=== PATIENT | male | born 1930 | race Caucasian/White ===

== ENCOUNTER → 2016-07-22 | Day surgery (SDC) | payer OTHER, MEDICARE ==
[2016-07-18 13:02] VITALS: Ht 170.2 cm; Wt 67.3 kg
[~2016-07-22] VITALS: Ht 170.2 cm; Wt 67.3 kg
[~2016-07-22] MED LIST: ASPCH81X PO; FINA5TAB PO; LIDOCAINE HCL 2% 2 ML VIAL (20MG/ML) ONE; PROPOFOL IV EMULSION 10 MG/ML 20 ML VIAL IV ONE; SODIUM CHLORIDE 0.9% 500ML 500 ML IV ONE
--- NOTE | 2016-07-22 11:37 | Endo History and Physical ---
History & Physical Date of Service: July 22, 2016. Chief Complaint: constipation,history of polyps Referring Physician: Dr. Mauro Garza History of Present Illness 85 yo CM who presents for colonoscopy secondary to change in bowel habits with constipation. Past Surgical History Hx Cardiac Surgery: No Hx Internal Defibrillator: No Hx Pacemaker: No Hx Abdominal Surgery: Yes (DAVINA, INGUINAL HERNIA REPAIR X 3, ABDOMINAL MASS REMOVAL) Hx of Implantable Prosthesis: No Hx Post-Op Nausea and Vomiting: No Hx Cancer Surgery: No Hx Thoracic Surgery: No Hx Orthopedic: No Hx Urinary Tract Surgery: Yes (LITHOTRIPSY AND KIDNEY STONE REMOVAL, TURP) Family History IBD Social History Smoking Status: Former Smoker Hx Substance Use: No Hx Alcohol Use: Yes (2 DRINKS DAILY (BEER AND WINE)) Allergies Coded Allergies: No Known Allergies (Verified , NONE, 07/22/16) Current Medications Reported Home Medications Medications Dose Route/Sig Max Daily Dose Days Date Category Aspirin Chewable (Aspirin) 81 Mg Chew 81 Mg PO HS 01/17/16 Reported Proscar (Finasteride) 5 Mg Tab 5 Mg PO QAM 09/07/08 Reported Vital Signs Weight (Kilograms): 67.27 Height (Feet): 5 Height (Inches): 7 Date Time Temp Pulse Resp B/P Pulse Ox O2 Delivery O2 Flow Rate FiO2 07/22/16 11:19 36.8 85 20 147/77 96 Room Air Physical Exam General Appearance: WD/WN, no apparent distress Respiratory/Chest: Auscultation: breath sounds normal Cardiovascular: Heart Auscultation: RRR Abdomen: Bowel Sounds: normal Inspection & Palpation: soft, non-distended, no tenderness, guarding & rebound Assessment and Plan Assessment: 85 yo CM who presents for colonoscopy secondary to change in bowel habits with constipation. Plan: Proceed with colonoscopy.
--- NOTE | 2016-07-22 12:21 | Discharge Instructions ---
Endoscopy Patient Instructions Date / Procedure(s) Performed July 22, 2016. Colonoscopy Allergy Information Coded Allergies: No Known Allergies (Verified , NONE, 07/22/16) Discharge Date / Findings July 22, 2016. Colon polyps Internal hemorrhoids Medication Instructions Stopped Medication(s): took ASA last night OK to resume all medications today as prescribed Reported Home Medications Medications Dose Route/Sig Max Daily Dose Days Date Category Aspirin Chewable (Aspirin) 81 Mg Chew 81 Mg PO HS 01/17/16 Reported Proscar (Finasteride) 5 Mg Tab 5 Mg PO QAM 09/07/08 Reported Provider Instructions Activity Restrictions - No exercising or heavy lifting for 24 hours. - Do not drink alcohol the day of the procedure. - Do not drive a car or operate machinery until the day after the procedure. - Do not make any important decisions or sign important papers in 24 hours after the procedure. Following Day: - Return to full activity which may include returning to work/school. Diet Start your diet with liquids and light foods (jello, soup, juice, toast). Then eat your usual diet if not nauseated. Treatment For Common After Affects For mild abdominal pain, bloating, or excessive gas: - Rest - Eat lightly - Lie on right side Follow-Up Information Follow-up with Dr. Mauro Garza as scheduled Anesthesia Information What You Should Know You have had a procedure that required some medicine to reduce anxiety and discomfort. This treatment is called moderate sedation. After receiving the treatment, you may be sleepy, but you will be able to breathe on your own. The effects of the treatment may last for several hours. Follow these instructions along with Activity/Diet recommendations noted above: * Do NOT do anything where dizziness or clumsiness would be dangerous. * Rest quietly at home today, then you can be up and about tomorrow. * Have a responsible person stay with you the rest of today. * You may have had an I.V. today. If so, you may take the dressing off later today. Recommendations Call your doctor if: * Trouble breathing * Continuous vomiting for more than 24 hours * Temperature above 101 degrees * Severe abdominal pain or bloating * Pain not relieved by pain medicine ordered * There is increased drainage or redness from any incision * A large amount of rectal bleeding greater than 2-3 tablespoons. (If you had a polyp/s removed or have hemorrhoids, a small amount of blood - from the rectum is to be expected.) * You have any unanswered questions or concerns. IN THE EVENT OF A SERIOUS EMERGENCY, GO TO THE NEAREST EMERGENCY ROOM Your discharge instructions were prepared by provider Raj Driver. Patient Instructions Signature Page Augustin Umaña Patient (or Guardian) Signature/Date: I have read and understand the instructions given to me by my caregivers. Caregiver/RN/Doctor Signature/Date: The above-named patient and/or guardian has received patient instructions on this date. + Original Patient Signature Page (only) stays with chart. Please make copy for patient.
--- NOTE | 2016-07-22 12:25 | GI REPORT ---
Procedure Date: 07/22/2016 11:41 AM Procedure: Colonoscopy Indications: Change in bowel habits, Incidental constipation noted Medicines: Monitored Anesthesia Care Complications: No immediate complications. Estimated Blood Loss: Estimated blood loss: none. Procedure: Pre-Anesthesia Assessment: - Prior to the procedure, a History and Physical was performed, and patient medications and allergies were reviewed. The patient's tolerance of previous anesthesia was also reviewed. The risks and benefits of the procedure and the sedation options and risks were discussed with the patient. All questions were answered, and informed consent was obtained. Prior Anticoagulants: The patient has taken aspirin, last dose was 1 day prior to procedure. ASA Grade Assessment: III - A patient with severe systemic disease. After reviewing the risks and benefits, the patient was deemed in satisfactory condition to undergo the procedure. After I obtained informed consent, the scope was passed under direct vision. Throughout the procedure, the patient's blood pressure, pulse, and oxygen saturations were monitored continuously. The Scope was introduced through the anus and advanced to the terminal ileum. The colonoscopy was performed without difficulty. The patient tolerated the procedure well. The quality of the bowel preparation was good. The terminal ileum, ileocecal valve, appendiceal orifice, and rectum were photographed. Findings: Two sessile polyps were found in the descending colon and in the transverse colon. The polyps were 5 to 6 mm in size. These polyps were removed with a hot snare. Resection and retrieval were complete. Non-bleeding internal hemorrhoids were found during retroflexion. The hemorrhoids were small. Impression: - Two 5 to 6 mm polyps in the descending colon and in the transverse colon, removed with a hot snare. Resected and retrieved. - Non-bleeding internal hemorrhoids. Recommendation: - Resume previous diet. - Continue present medications. - Repeat colonoscopy for surveillance based on pathology results. - Return to primary care physician as previously scheduled. Raj rDiver DO 07/22/2016 12:24:30 PM This report has been signed electronically. Note Initiated On: 07/22/2016 11:41 AM I attest to the content of the Intraoperative Record and orders documented therein, exceptions below
[2016-07-22 13:04] VITALS: BP 134/76; PULSE 76; O2SAT 97
--- NOTE | 2016-07-22 13:08 | Anesthesiology Progress Note ---
Anesthesia Post Op Note Date & Time July 22, 2016 at 13:08 Vital Signs Pain Intensity: 0 Vital Signs Past 12 Hours Date Time Temp Pulse Resp B/P Pulse Ox O2 Delivery O2 Flow Rate FiO2 07/22/16 13:04 76 20 134/76 97 Room Air 07/22/16 12:54 74 16 131/76 95 Room Air 07/22/16 12:36 72 16 110/65 98 Room Air 07/22/16 12:21 68 16 129/68 97 Room Air 07/22/16 11:19 36.8 85 20 147/77 96 Room Air Notes Mental Status: alert / awake / arousable, participated in evaluation Pt Amnestic to Procedure: Yes Nausea / Vomiting: adequately controlled Pain: adequately controlled Airway Patency, RR, SpO2: stable & adequate BP & HR: stable & adequate Hydration State: stable & adequate Anesthetic Complications: no major complications apparent
== END | disposition home or self-care (01) ==
LOC: C.GI 10:24
PROVIDERS: ATTEND Internal Medicine
DX: D12.4 Benign neoplasm of descending colon (principal); D12.3 Benign neoplasm of transverse colon; K64.8 Other hemorrhoids; R19.4 Change in bowel habit; Z87.891 Personal history of nicotine dependence; Z83.79 Family history of other diseases of the digestive system; Z79.899 Other long term (current) drug therapy; Z79.82 Long term (current) use of aspirin

== ENCOUNTER → 2017-02-14 | Outpatient (CLI) | payer OTHER, MEDICARE ==
[~2017-02-14] MED LIST changes: -LIDOCAINE HCL 2% 2 ML VIAL (20MG/ML) ONE; +OPTIRAY 320 IV PRN; -PROPOFOL IV EMULSION 10 MG/ML 20 ML VIAL IV ONE; -SODIUM CHLORIDE 0.9% 500ML 500 ML IV ONE
--- NOTE | 2017-02-14 11:03 | DIAGNOSTIC IMAGING REPORT ---
ABDOMEN AND PELVIS CT WITH IV AND ORAL CONTRAST CT DOSE: 314.75 mGy.cm HISTORY: Acute constipation with abdominal fullness. History of lymphoma HX NON HODGKINS LYMPHOMA TECHNIQUE: Multiaxial CT images of the abdomen and pelvis were performed following the use of intravenous and oral contrast. A dose lowering technique was utilized adhering to the principles of ALARA. COMPARISON STUDY: PET CT 12/01/2014, CT abdomen and pelvis 11/28/2011. FINDINGS: Lung bases demonstrate minimal subsegmental bibasilar atelectasis. No pneumoperitoneum or pneumatosis. Imaged inferior cardiac chambers are mildly enlarged. Coronary arterial calcifications noted. Prior cholecystectomy. The spleen and adrenal glands are within normal limits. At least moderate diffuse pancreatic atrophy. There is a low attenuating 2.1 x 2.7 x 3.0 cm ovoid lesion inferior to the pancreatic body nicely seen on image 126 of series 3. This has decreased in size from PET/CT 12/01/2014 where it previously measured 3.0 x 2.7 cm. Again, this is indeterminate however suggests benign etiology. Low attenuating 7 mm lesion of the superior pole right kidney is too small to characterize. Area of increased attenuation was noted within this distribution on CT dated 11/28/2011 suggesting complex renal cyst. No renal calculi or hydronephrosis identified. Mild bilateral renal parenchyma thinning is noted. Ureters and urinary bladder are unremarkable. Heterogeneous appearance of the prostate is noted which contains coarse central calcifications. Atherosclerosis of the aorta without aneurysm. There is no bowel obstruction or focal bowel wall thickening. No bulky adenopathy identified. Soft tissues are unremarkable. The bones appear mildly demineralized. No suspicious lytic or blastic bony lesions. Multilevel degenerative changes of the spine are noted. IMPRESSION: 1. No acute intra-abdominal or intrapelvic abnormality identified. 2. No bulky adenopathy. 3. Additional findings as above. Electronically signed by: Myron Barber M.D. 02/14/2017 11:02 AM Dictated Date/Time: 02/14/2017 10:53 AM
== END | disposition home or self-care (01) ==
LOC: C.CTS 10:25
PROVIDERS: ATTEND Family Medicine
DX: Z85.72 Personal history of non-Hodgkin lymphomas (principal); N44.2 Benign cyst of testis

== ENCOUNTER 2019-02-21 09:22 | Observation (INO) ==
[2019-02-21] MEDS ORDERED: NiCARDipine HCL INJ 2.5 MG/ML 10 ML AMP ONE (10:57)
[2019-02-21] MEDS ORDERED: fentaNYL citrate 100 MCG/2 ML VIAL ONE ×3 (10:57→13:36)
[2019-02-21] MEDS ORDERED: HEPARIN (PORCINE) 1000 UNIT/ML 10 ML (CATH LAB USE ONLY) ONE ×2 (10:57→13:14)
[2019-02-21] MEDS ORDERED: MIDAZOLAM HCL 1 MG/ML 2ML VIAL ONE ×4 (10:57→13:36)
[2019-02-21] MEDS ORDERED: NITROGLYCERIN/D5W 100MCG/ML 20ML SYR ONE (10:58)
--- NOTE | 2019-02-21 11:15 | History & Physical Bridge Note ---
Date of Service February 21, 2019 History & Physical Bridge Note I have examined the patient, reviewed the History & Physical and in the interval since the performance of the History & Physical I have noted the following changes of clinical significance: no changes noted
--- NOTE | 2019-02-21 11:16 | Pre Anesthesia Assessment ---
Date of Service February 21, 2019 Pre Sedation Assessment Vital Signs Temp Pulse Resp BP Pulse Ox 02/21/19 09:42 97.7 F 63 17 161/85 H 97 Cardiovascular RRR, no murmur, no edema Respiratory normal respiratory effort, lungs clear to auscultation Pre-Sedation Airway Assessment Smoking Status: Former smoker Short, Thick Neck: No Thyromental Distance: > or= 3.5 Finger Breadths Oral Cavity: + Chipped Teeth Mallampati Class: III ASA: ASA3 NPO Status Date of Last Intake of Fluids: 02/20/19 Time of Last Intake of Fluids: 21:30 Date of Last Intake of Solid Food: 02/20/19 Time of Last Intake of Solid Foods: 21:30 Procedure Planning Contraindications for Sedation: none Current Medications Reviewed: Yes Notes The planned sedation has been discussed with the patient. Informed Consent was obtained. I have identified the patient, determined the appropriateness of sedation and have assessed the patient immediately prior to the procedure. All medicine(s) and interventions are by my order.
[2019-02-21] MEDS ORDERED: ADENOSINE IV SOLN 3 MG/ML 20 ML VIAL IV ONE (11:58)
[2019-02-21] MEDS ORDERED: CLOPIDOGREL BISULFATE 300 MG TAB ONE (13:48)
[2019-02-21] MEDS ORDERED: NITROGLYCERIN SL 0.4 MG/TAB TAB SL PRN (14:24)
[2019-02-21] MEDS ORDERED: SODIUM CHLORIDE 0.9% 1000ML 1,000 ML IV SCH (14:30)
[2019-02-21] MEDS ORDERED: ENOXAPARIN INJ 40 MG/0.4 ML SYR SQ ONE (15:00)
[2019-02-21] MEDS: AMLODIPINE BESYLATE 5 MG TAB PO SCH (15:28)
[2019-02-21] MEDS ORDERED: SODIUM CHLORIDE 0.9% 500 ML IV SCH (15:30)
[2019-02-21 15:42] LABS: Creatinine Clr Calc Pharmacy 57.7 ml/min; Est GFR (African American) 91.3; Est GFR (Non-African American) 78.8
--- NOTE | 2019-02-21 16:52 | Post Anesthesia Assessment ---
Date of Service February 21, 2019 Post Sedation Assessment Vital Signs Temp Pulse Resp BP Pulse Ox 02/21/19 16:06 60 16 181/79 H 97 02/21/19 15:41 56 L 16 185/82 H 97 02/21/19 15:23 57 L 16 175/79 H 96 02/21/19 14:51 97.3 F L 56 L 18 171/79 H 96 02/21/19 14:35 97.5 F L 62 18 167/82 H 02/21/19 14:15 59 L 18 162/84 H 98 02/21/19 14:00 60 18 176/88 H 95 02/21/19 09:42 97.7 F 63 17 161/85 H 97 Recovery Score Activity: Moves 4 extremities Respiration: Deep Breath/Cough Circulation: +/-20% PreAnes Value Consciousness: Fully Awake Oxygen Saturation: O2 needed for >90% Discharge Sedation Level of Care: Fast Track Phase II Post Sedation Plan On clinical assessment, the patient appears to have tolerated the sedation without complications. Patient is recovering as anticipated. Patient will continue to be monitored by nursing and may be discharged when sedation discharge criteria are met per below protocol. Upon Completions of procedure up to 15 minutes continue every 5 minute vital signs and the P.A.R. score; then discharge to a Phase I or Fast Track to Phase II per the following guidelines: * Discharge Patient to appropriate Phase II area if PAR is 8 or greater or return to pre- procedure baseline. The post - procedure orders will be as directed. * If PAR score is less than 8 or not return to pre-procedure baseline then patient will follow Phase I monitoring till PAR is reached for Phase II. The Phase I may be done in procedure room or may call to secure a Phase I area. * If naloxone or flumazenil are used for reversal, hold in Phase I for continued monitoring from when last reversal dose was given for a minimum of 60 minutes or longer pending the nurse and/or physician discretion of patient condition before discharge to Phase II. Please call the Sedation Physician to re-evaluate and complete post-note for discharge to Phase II area. Do NOT discharge from procedure sedation or Phase 1 until post- sedation evaluation note is complete by procedure /sedation MD Sedation Discharge Instructions to be given to the patient at discharge to home.
[2019-02-21] MEDS ORDERED: ACETAMINOPHEN 325 MG TAB PO PRN (17:06)
--- NOTE | 2019-02-21 17:19 | Cardiac Catheterization ---
[facility] Data: Brewery Technician Cardiac Status Clinical evaluation leading to the procedure CAD Presenation: Unstable angina Anginal Classification: CCS IV Heart Failure: No Cardiogenic Shock within 24 Hours: No Cardiac Arrest within 24 Hours: No Imaging Studies Past 6 Months: Yes Stress Studies Past 6 Months: No Diagnostic Physicians Name: Warner Sahni MD Status: Elective Closure Device Percutaneous Entry Location: Radial Closure Device: Radial Band Recommendations: PCI without planned CABG PCI Indication: + Stress Test and Angina despite med therapy Lesion Segment Name: 1st diagonal Culprit Artery: Yes Stenosis Prior to Rx (%): 90 Chronic Total Occlusion: No IVUS: No FFR: No Pre-Procedure LÁZARO Flow: 3 Previously Treated Lesion: No Lesion Complexity: High/C Lesion Length (mm): 25 Thrombus Present: No Bifurcation Lesion: Yes Guidewire Across Lesion: Stenosis Post-Procedure (%): 0 Post-Procedure LÁZARO Flow: 3 Devices(s) Deployed: Yes Yes Lesion #2 Segment Name: ostial to mid LAD Culprit Artery: No Stenosis Prior to Rx (%): 60-70 Chronic Total Occlusion: No IVUS: Yes FFR: No Pre-Procedure LÁZARO Flow: 3 Previously Treated Lesion: No Lesion Complexity: High/C Lesion Length (mm): 30 Thrombus Present: No Bifurcation Lesion: Yes Guidewire Across Lesion: Yes Stenosis Post-Procedure (%): 0 Post-Procedure LÁZARO Flow: 3 Devices(s) Deployed: Yes Intraprocedure Events Significant Disection: No Perforation: No Cardiac Cath Procedure Full Procedure Date February 21, 2019 Pre-Procedure Diagnosis Pre-Procedure Diagnosis: Angina and Positive Stress Test AUC Score AUC Score: 7 Post-Procedure Diagnosis Post-Procedure Diagnosis: Severe CAD, Successful PCI and Normal Intracardiac Pressures Procedure(s) Performed Procedure(s) Performed: Coronary Angiography, Left Heart Cath, Drug Eluting Stent, IVUS and Fractional Flow [place] Hydraulic Controls Technician Warner Sahni MD E Commerce Marketing Manager(s) Heath Estimated Blood Loss Estimated Blood Loss: 15 Medication(s) Medication(s): Clopidogrel, Fentanyl, Heparin, Lidocaine 1%, Nicardipine, Nitroglycerin and Versed Summary of Findings Indication: Accelerating angina, prior abnormal stress test Access: 6 Fr slender right radial artery Catheters: Luna, JR4 guide, EBU 3.5 guide Findings: LM -moderate caliber, calcified, 20% distal stenosis LAD -40 to 50% ostial stenosis, 50 to 60% proximal to mid disease extending across bifurcation of first septal, large first diagonal. First diagonal with 90% ostial stenosis and 50% mid stenosis. Circumflex -moderate caliber, 30% ostial, mild disease in mid segment extending into large OM 2. Ramus -small caliber with 80% ostial/proximal stenosis RCA -dominant, large caliber vessel, mild diffuse mid segment disease, 50 to 60% distal stenosis. PDA with luminal irregularities LVEDP -10 FFR of RCA RCA cannulated with JR4 guide BMW wire placed into right PDA ACIST FFR catheter placed across distal RCA lesion Pd/Pa 0.98 FFR 0.92 Post procedure no coronary complications -- PCI of LAD/diagonal-- Antithrombotic therapy: Heparin, clopidogrel Procedure: Left main cannulated with EBU 3.5 guide Tactical Intelligence Officer 50 wire passed across lesion into distal first diagonal Pro-water wire passed across lesion and placed in the distal LAD Proximal to mid LAD lesion predilated with 2.5 compliant balloon Ostial to mid first diagonal dilated with 2.5 balloon Dilated diagonal lesion stented with 2.5 x 26 mm [place] drug-eluting stent Stent post-dilated with 2.5 noncompliant balloon Proximal to mid LAD again dilated with 2.5 compliant balloon Proximal to mid LAD stented with 2.75 x 22 mm Mahamed drug-eluting stent Diagonal rewired with remote pilot operator 50 wire and LAD stent struts into diagonal dilated with 2.0 balloon Kissing balloon inflation with 3.0 balloon and LAD, 2.5 balloon in diagonal IC vasodilators administered for spasm Post stenting ostial LAD stenosis appeared more significant. IVUS attempted to further assess but would not pass across stenosis. LAD rewired with BMW wire, pro-water placed in circumflex 2.5 x 8 mm Mahamed drug-eluting stent placed from ostium of LAD and overlapped proximal aspect of initial LAD stent. Post procedure LÁZARO 3 flow, stent well expanded with minimal residual stenosis and no apparent cardiac complications. Arterial Closure: TR band Summary: 1. Multivessel coronary artery disease -60 to 70% proximal to mid LAD at bifurcation with large first diagonal First diagonal with 90% ostial stenosis, 50% mid stenosis. Small ramus with 90% ostial/proximal disease Distal RCA with 50 to 60% stenosisnonobstructive by FFR 0.92 2. Normal intracardiac filling pressure 3. Successful PCI of ostial to mid LAD, first diagonal bifurcation with 3 drug- eluting stents (LAD2.5 x 8, 2.75 x 22, diagonal2.5 x 26bifurcation postdilated with kissing balloons). 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 If refractory symptoms in the future could consider attempt at PCI. Hemodynamics Rest Ao:: 161/81/114 Final Ao: 142/75/105 LV: 164/10 Recommendations Recommendations: PCI without planned CABG Specimens Specimens: None Radiation Exposure (mGy) 5922 Contrast (mls) 140 Fluids (cc crystalloids) Fluids (cc crystalloids): 400 Drains Drains: none Anesthesia moderate Procedural Complication(s) None Disposition PCU I attest to the content of the Intraoperative Record and any orders documented therein. Any exceptions are noted below. [facility] Card Cath Procedure Codes Cardiac Catheterization Procedure 1: Cardiovascular Cath Procedures: 01494 Coronaries and LHC (+/-LV) Procedure 2: Cardiovascular Cath Procedures: 66054 (Doppler) Pressure Wire Therapeutic Services & Ancillary Proc Procedure 1: Cardiovascular Tx and Anc Procedures: 93496 IV Ultrasound (Coronary or Graft) Moderate Sedation Procedure 1: Sedation/Anesthesia: 07698 Mod Sedation by the same physician;Init15 Min Child Age 5 & Up Procedure 2: Sedation/Anesthesia: 28936 Mod Sedation by the same physician; Ea [id number] Minutes Stenting Procedure 1: Cardiovascular Stent Procedures: 60613 Perc transcatheter placement of intracoronary stent(s), with ang Procedure 2: Cardiovascular Stent Procedures: 28396 Ea addl branch of a major coronary artery PG Care Time/CCT Total # of Minutes Spent Total Time Spent with Patient: Total time spent is greater than 50% in coordination of care (as documented) at patient's floor/unit and/or counseling patient:
[2019-02-21] MEDS: ONDANSETRON INJ 2 MG/ML 2 ML VIAL IV PRN (20:03)
[2019-02-21] MEDS ORDERED: METOPROLOL SUCC 25MG EXT REL TAB PO SCH (21:00)
[2019-02-22 06:43] LABS: Basophils # (auto) 0.02 K/uL (0-0.2); Basophils % (auto) 0.2 %; Eosinophils # (auto) 0.07 K/uL (0-0.5); Eosinophils % (auto) 0.6 %; Hematocrit (blood only) 40.6 % (42-52); Hemoglobin 13.8 g/dL (14.0-18.0); Immature Granulocytes # (auto) 0.02 K/uL (0.00-0.02); Immature Granulocytes % (auto) 0.2 %; Lymphocytes % (auto) 11.4 %; Mean Corpuscular Hemoglobin 30.6 pg (25-34); Mean Platelet Volume 10.6 fL (7.4-10.4); Monocytes # (auto) 0.91 K/uL (0.11-0.59); Monocytes % (auto) 7.4 %; Neutrophils # (auto) 9.81 K/uL (1.4-6.5); Neutrophils % (auto) 80.2 %; Platelet Count 194 K/uL (130-400); RDW Coefficient of Variation 13.3 % (11.5-14.5); RDW Standard Deviation 43.7 fL (36.4-46.3); Red Blood Count 4.51 M/uL (4.7-6.1); White Blood Count 12.23 K/uL (4.8-10.8)
[2019-02-22 07:18] LABS: BUN Creatinine Ratio 15.9 (10-20); Calcium 8.7 mg/dl (8.5-10.1); Creatinine Clr Calc Pharmacy 46.8 ml/min; Est GFR (African American) 77.9; Est GFR (Non-African American) 67.2; Potassium 3.8 mmol/L (3.5-5.1)
[2019-02-22] MEDS: ONDANSETRON INJ 2 MG/ML 2 ML VIAL IV PRN (07:47)
[2019-02-22] MEDS: AMLODIPINE BESYLATE 5 MG TAB PO SCH (08:12)
[2019-02-22] MEDS ORDERED: ASPIRIN 81 MG ECTAB PO SCH (09:00)
[2019-02-22] MEDS ORDERED: TAMSULOSIN HCL 0.4 MG CAP PO SCH (09:00)
[2019-02-22] MEDS ORDERED: FINASTERIDE 5 MG TAB PO SCH (09:00)
[2019-02-22] MEDS ORDERED: CLOPIDOGREL BISULFATE 75 MG TAB PO SCH (09:00)
--- NOTE | 2019-02-22 09:23 | Discharge Summary ---
Date of Service February 22, 2019 Admission HPI Per Admitting Provider Patient seen by Dr. Brenner in outpatient setting for progressive angina. Stress echo was abnormal suggesting basal inferior and inferolateral wall ischemia. No prior history of coronary artery disease. Admission Exam (Per Admitting) Constitutional WD/WN, vitals as above Eyes + anicteric sclerae Respiratory normal respiratory effort, lungs clear to auscultation Cardiovascular Rate/Rhythm: regular rate and regular rhythm Heart Sounds: + murmur Gastrointestinal (Abdomen) normal bowel sounds, soft, nontender, no hepatosplenomegaly Skin no rashes, warm and dry Psychiatric A+Ox3, euthymic affect Discharge Data Consultations 02/21/19 14:23 Consult Cardiac Rehabilitation Routine Procedures Performed Operation Date: 02/21/19 10:30 Actual Procedures s Cineradiography w/Routine Exam - Adin Sahni MD p Cath, Left with Cors and Vent(Not Applicable) - Adin Sahni MD s Drug Eluting Stent SGl Vessel - Adin Sahni MD s Drug Eluting Stent each ADDTL Vessel - Adin Sahni MD s IVUS Coronary Single Vessel - Adin Sahni MD s Fraction Flow [place] SGL Ves - Adin Sahni MD Hospital Course (1) Multiple vessel coronary artery disease: Patient underwent cardiac catheterization on 02/21/19. This demonstrated multivessel coronary artery disease with 60 to 70% proximal to mid LAD at bifurcation with large first diagonal, first diagonal with 90% ostial stenosis, 50% mid stenosis, small ramus with 90% ostial/proximal disease and distal RCA with 50 to 60% stenosisnonobstructive by FFR 0.92. He underwent successful PCI of ostial to mid LAD, first diagonal with 3 drug eluding stents (LAD2.5 x 8, 2.75 x 22, diagonal2.5 x 26bifurcation postdilated with kissing balloons). Last evening patient had mild, intermittent difficulty with word finding likely secondary to effects from anesthesia. Also had nausea and vomiting x2. Reports feeling significantly better today. No further nausea or vomiting. No recurrent chest pain and has been up ambulating in his room. No shortness of breath, palpitations, lightheadedness, near syncope or syncope. Right radial access site without hematoma or significant ecchymosis. Distal pulse/sensation intact Neuro exam is unremarkable. no slurred speech and alert and oriented x3. Carries on appropriate conversation. Anxious to go home. --Continue dual antiplatelet therapy for minimum of 1 year. --Continue beta duncan, statin --Consult cardiac rehab --Followup with Dr. Brenner Discharge Instructions ACTIVITY RECOMMENDATIONS: Excess manipulation of the wrist should be avoided for the next 24-48 hours. * No lifting over 2 pounds (approximately a 1/2 gallon of milk) with the utilized arm for 24 hours. * No strenuous activity such as bowling or tennis for 3 days. * Keep the site of the procedure covered with a bandage for 24 hours. *You may shower the day after the procedure. Do not take a tub bath or submerge the puncture site in water for the next 3 days. *Do not operate any motorized equipment for 3 days. SPECIAL CARE INSTRUCTIONS: The site may be slightly bruised and sore following your procedure. Should any of the following occur, contact the Dr. who performed your procedure. 1. Redness/inflammation, swelling, chills, or fever, or colored drainage at procedure site within 3-7 days after your procedure. 2. Coldness, discoloration, ongoing numbness, severe pain, or swelling. Expect mild tingling of hand and tenderness at the puncture site for up to three days. If this persists beyond three days, or other symptoms develop, notify the Dr. who performed your procedure. BLEEDING: If the procedure site on your wrist begins to bleed, do not panic 1. Place 1 or 2 fingers firmly just slightly above the insertion site to stop the bleeding. You may be able to feel your pulse as you hold pressure. 2. Lift your finger after 5 minutes to see if the bleeding has stopped. 3. Once the bleeding has stopped, gently wipe the wrist area clean with a bandage. * If the bleeding from your wrist does not stop after 10 minutes, or if there is a large amount of bleeding or spurting, call 911 (do not drive yourself to the hospital). SKIN IRRITATION: * You may experience some redness and/or swelling in the area where radiation was administered. If any skin irritation occurs, please contact your family physician. FOLLOW UP VISIT: Keep any scheduled doctor appointments. Followup with Dr. Brenner in 1-2 weeks.
[2019-02-22] MEDS ORDERED: ENOXAPARIN INJ 40 MG/0.4 ML SYR SQ SCH (11:00)
== END 2019-02-22 11:55 | disposition home or self-care (01) ==
LOC: 2S 09:22 → CC 09:22

== ENCOUNTER 2019-03-30 08:23 | Observation (INO) ==
[2019-03-30 08:52] LABS: Basophils # (auto) 0.02 K/uL (0-0.2); Basophils % (auto) 0.2 %; Eosinophils # (auto) 0.13 K/uL (0-0.5); Eosinophils % (auto) 1.4 %; Hematocrit (blood only) 39.6 % (42-52); Hemoglobin 13.6 g/dL (14.0-18.0); Immature Granulocytes # (auto) 0.03 K/uL (0.00-0.02); Immature Granulocytes % (auto) 0.3 %; Lymphocytes # (auto) 0.94 K/uL (1.2-3.4); Lymphocytes % (auto) 9.9 %; Mean Corpuscular Hemoglobin 30.8 pg (25-34); Mean Corpuscular Hgb Conc 34.3 g/dL (32-36); Mean Corpuscular Volume 89.8 fL (80-100); Monocytes # (auto) 0.53 K/uL (0.11-0.59); Monocytes % (auto) 5.6 %; Neutrophils # (auto) 7.89 K/uL (1.4-6.5); Neutrophils % (auto) 82.6 %; Platelet Count 174 K/uL (130-400); RDW Coefficient of Variation 13.4 % (11.5-14.5); RDW Standard Deviation 43.9 fL (36.4-46.3); Red Blood Count 4.41 M/uL (4.7-6.1); White Blood Count 9.54 K/uL (4.8-10.8)
[2019-03-30 09:03] LABS: Partial Thromboplastin Time 27.5 Seconds (21.0-31.0); Prothrombin Time 10.3 Seconds (9.0-12.0)
[2019-03-30 09:05] LABS: Alanine Aminotransferase 21 U/L (12-78); Albumin Level 3.6 gm/dl (3.4-5.0); Aspartate Aminotransferase 21 U/L (15-37); BUN Creatinine Ratio 21.1 (10-20); Blood Urea Nitrogen 19 mg/dl (7-18); Calcium 8.9 mg/dl (8.5-10.1); Carbon Dioxide 26 mmol/L (21-32); Chloride 108 mmol/L (98-107); Creatinine Clr Calc Pharmacy 51.5 ml/min; Est GFR (African American) 86.3; Est GFR (Non-African American) 74.5; Glucose 109 mg/dl (70-99); Lipase 142 U/L (73-393); Sodium 140 mmol/L (136-145)
[2019-03-30 09:07] LABS: Albumin Globulin Ratio 1.2 (0.9-2); Alkaline Phosphatase 74 U/L (45-117); Bilirubin,Total 0.6 mg/dl (0.2-1); Total Protein 6.6 gm/dl (6.4-8.2); Troponin I < 0.015 ng/ml (0-0.045)
[2019-03-30] MEDS ORDERED: SODIUM CHLORIDE 0.9% 1000ML 500 ML IV ONE (09:19)
--- NOTE | 2019-03-30 09:24 | XRay Report ---
XR chest 1V portable HISTORY: Atypical Chest Pain COMPARISON: Chest 01/17/2016. FINDINGS: The lungs are clear. Cardiac silhouette is normal in size. No pleural effusions. No pneumot horax. IMPRESSION: No acute process. ACT 112: Negative or not required by law. Electronically signed by: Get Foreman M.D. 03/30/2019 9:23 AM
--- NOTE | 2019-03-30 09:41 | Emergency Department Note ---
Entered by Usman Lopez acting as a scribe for History of Present Illness General Chief complaint: Chest Pain Time Seen by Provider: 03/30/19 08:31 Source: patient Limitations: no limitations History of Present Illness Onset (ago): hour(s) 8 Location: chest Radiation: non-radiation Pain Consistency: + intermittent Maximum Pain Intensity: 2 Current Pain Intensity: 2 Quality: + aching Associated symptoms: + denies other symptoms (pain or numbness in legs or face) and + other (numbness of right hand); no diaphoresis and no nausea/vomiting (nausea) Treatments prior to arrival: other (nitroglycerin, aspirin) The patient is a 88 year old male who presents to the Emergency Room with com plaints of intermittent and aching chest pain starting 8 hours ago. The patient states he had a heart attack last month. He states he did not have any episodes of chest pain since then, but was hospitalized since then after an abnormal stress test. He states he went to bed last night at 2300 and then started getting chest pain at 0100 today. He notes he had right hand numbness when he was going to sleep. He notes the numbness went away when he shook his hand. He states he got chest heaviness and notes he is unsure if he was asleep at that time or not. He notes he took a baby aspirin and nitroglycerin when he first got the pain and states the pain went away for two hours. He states the pain came back and he did another nitroglycerin treatment. He states his pain was 7/10 last night. The patient states his pain is 2/10 right now. He states the pain does not radiate. He notes he overall took 3 nitroglycerin two hours apart. He notes EMS gave him aspirin. He states he feels a little SOB. He states he felt a flutter in his heart about 3 times and states it lasted a few seconds each time. He states he has been getting some chest heaviness after walking for a while. He notes he gets pain with a deep breath that started an hour ago. The patient denies diaphoresis, nausea, and pain or numbness in his legs or face. He states his PCP is Dr. Loya and his deck lid fitter is Dr. Brenner. Home Medications Home Medications Medication Instructions Recorded Confirmed Type nitroglycerin 0.4 mg SUBLINGUAL USEASDIRECTD PRN 02/20/19 03/30/19 History tamsulosin 0.4 mg PO DAILY PRN 02/20/19 03/30/19 History aspirin [Ecotrin Low Strength] 81 mg PO QAM #30 tab 02/22/19 03/30/19 Rx clopidogrel 75 mg PO QAM #30 tab 02/22/19 03/30/19 Rx metoprolol succinate 25 mg PO HS #30 tab 02/22/19 03/30/19 Rx amlodipine 5 mg tablet 5 mg PO QAM 03/26/19 03/30/19 History clotrimazole 1 % topical cream 1 appln TOP BID #45 gm 03/26/19 03/30/19 Rx finasteride 5 mg PO QAM 03/30/19 03/30/19 History Allergies Allergy/AdvReac Type Severity Reaction Status Date / Time No Known Allergies Allergy NONE Verified 03/30/19 09:03 Past Med/Surg History Medical History (Updated 03/30/19 @ 10:43 by Domenic Archibald MD) Heart attack Prostate cancer screening Tinea cruris Surgical History History of intravascular stent placement Family History Other Family history non-contributory Social History Weight Yardage Checker Required: No Beliefs That Will Affect Care: None Current Living Situation: Spouse Feels Safe at Home: Yes Smoking Status: Former smoker Hx Alcohol Use: Yes Alcohol type: beer and wine Hx Substance Use: No Review of Systems See HPI for pertinent positives & negatives. and A total of 10 systems reviewed and were otherwise negative Physical Exam Vital Signs Vital Signs - 24 hr 03/30/19 08:32 03/30/19 08:46 03/30/19 09:30 Temperature 36.6 C Temperature Source Oral Pulse Rate 70 76 Pulse Rate [Apical] 62 Pulse Rhythm Regular Regular Pulse Rhythm [Apical] Regular Pulse Strength Normal Respiratory Rate 17 17 16 Respiratory Effort / Characteristics Non-Labored Spontaneous Non-Labored Spontaneous Respiratory Depth Normal Normal Respiratory Pattern Regular Regular Blood Pressure 135/77 Blood Pressure [Right Arm] 128/59 L Blood Pressure Mean 96 Blood Pressure Mean [Right Arm] 82 Pulse Oximetry 94 94 96 Oxygen Delivery Method Room Air Room Air Room Air Sepsis Recent Fever Within 48 Hours No Sepsis New/Unexplained Change in Mental Status No Sepsis Action Taken by Nursing No Action Required General: Non-ill appearing older male in no acute distress. HEENT: Normal cephalic atraumatic. Pupils are equal round and reactive to light. Extraocular movements are intact. Oropharynx is pink with moist mucous membranes. No swelling of the mouth lips or tongue. Neck: Supple with a midline trachea. No meningeal signs or stiffness, no JVD or bruits. No Stridor. Chest: Clear to auscultation bilaterally. No wheezes or rhonchi. No increased work of breathing. Heart: regular rate and rhythm. Abdomen: Soft nontender, nondistended without rebound guarding or rigidity. Extremities: No cyanosis clubbing or edema. No calf tenderness or asymmetry Spine/Back. Non tender to palpation. No CVA tenderness Skin: Good turgor without rashes. Neurologic exam: Cranial nerves two through 12 are intact. Motor and sensation are intact and symmetrical throughout. Course Course 0834: The patient was evaluated in room B12B, and a complete history and physical examination were performed. 0925: I ordered a CT chest. 1009: I spoke to Natanael Meade PA-C. Dr. Arian Sadler [facility] Hospitalist will evaluate the patient for further management. Administered Medications Ioversol (Optiray 320 100ml) 93 ml IV ONCE PRN PRN Reason: Interaction Checking Stop: 04/03/19 09:41 Last Admin: 03/30/19 09:43 Dose: 93 ml Documented by: [id number] Discontinued Medications Sodium Chloride (Nss 1000ml) 500 mls @ 999 mls/hr IV .Q31M ONE Stop: 03/30/19 09:49 Last Infusion: 03/30/19 10:14 Dose: 0 mls/hr Documented by: [id number] Admin: 03/30/19 09:27 Dose: 999 mls/hr Documented by: [id number] Medical Decision Making Differential Diagnosis Differential Diagnosis includes but is not limited to unstable angina, acute coronary syndrome, CHF, PE, infection, and electrolyte or metabolic abnormality. Medical Records Attestation: I reviewed the patient's medical records. Home Medications Current Medication List: was personally reviewed by me Laboratory Data Attestation: I reviewed the patient's lab results. Result diagrams: 03/30/19 08:34 03/30/19 08:34 Lab Results 03/30/19 03/30/19 03/30/19 Range/Units 08:34 08:34 08:34 WBC 9.54 (4.8-10.8) K/uL RBC 4.41 L (4.7-6.1) M/uL Hgb 13.6 L (14.0-18.0) g/dL Hct 39.6 L (42-52) % MCV 89.8 (80-100) fL MCH 30.8 (25-34) pg MCHC 34.3 (32-36) g/dL RDW Std Deviation 43.9 (36.4-46.3) fL RDW Coeff of Mireya 13.4 (11.5-14.5) % Plt Count 174 (130-400) K/uL MPV 10.0 (7.4-10.4) fL Immature Gran % (Auto) 0.3 % Neut % (Auto) 82.6 % Lymph % (Auto) 9.9 % [place] % (Auto) 5.6 % Eos % (Auto) 1.4 % Baso % (Auto) 0.2 % Immature Gran # (Auto) 0.03 H (0.00-0.02) K/uL Neut # (Auto) 7.89 H (1.4-6.5) K/uL Lymph # (Auto) 0.94 L (1.2-3.4) K/uL [place] # (Auto) 0.53 (0.11-0.59) K/uL Eos # (Auto) 0.13 (0-0.5) K/uL Baso # (Auto) 0.02 (0-0.2) K/uL PT 10.3 (9.0-12.0) Seconds INR 1.0 (0.9-1.1) APTT 27.5 (21.0-31.0) Seconds PTT Ratio 1.0 Sodium 140 (136-145) mmol/L Potassium 4.0 (3.5-5.1) mmol/L Chloride 108 H (98-107) mmol/L Carbon Dioxide 26 (21-32) mmol/L Anion Gap 6.0 (3-11) BUN 19 H (7-18) mg/dl Creatinine 0.91 (0.6-1.4) mg/dl Est Cr Clr Drug Dosing 51.5 ml/min Est GFR ( Amer) 86.3 Est GFR (Non-Af Amer) 74.5 BUN/Creatinine Ratio 21.1 H (10-20) Glucose 109 H (70-99) mg/dl Calcium 8.9 (8.5-10.1) mg/dl Total Bilirubin 0.6 (0.2-1) mg/dl AST 21 (15-37) U/L ALT 21 (12-78) U/L Alkaline Phosphatase 74 (45-117) U/L Troponin I < 0.015 (0-0.045) ng/ml Total Protein 6.6 (6.4-8.2) gm/dl Albumin 3.6 (3.4-5.0) gm/dl Globulin 3.0 (2.5-4.0) gm/dl Albumin/Globulin Ratio 1.2 (0.9-2) Lipase 142 (73-393) U/L Specimen Hemolysis Imaging Data Radiologist's Impression: Radiology results as stated below per my review and the radiologist's interpretation: XR chest 1V portable HISTORY: Atypical Chest Pain COMPARISON: Chest 01/17/2016. FINDINGS: The lungs are clear. Cardiac silhouette is normal in size. No pleural effusions. No pneumothorax. IMPRESSION: No acute process. ACT 112: Negative or not required by law. Electronically signed by: Get Foreman M.D. 03/30/2019 9:23 AM CHEST CTA for PULMONARY ARTERIES CT DOSE: 393.23 mGy.cm HISTORY: Sclerosis of breath. TECHNIQUE: Multiaxial CT images of the chest were performed following the intravenous administration of contrast to evaluate the pulmonary arteries. Maximal intensity projection images were also obtained. A dose lowering technique was utilized adhering to the principles of ALARA. COMPARISON STUDY: Chest CT 12/19/2018. FINDINGS: Stable left thyroid nodules measure up to 1.3 cm. Normal caliber thoracic aorta with no evidence for dissection. The heart is normal in size. No pleural or pericardial effusions. No mediastinal or hilar lymphadenopathy. The visualized liver and spleen are unremarkable. There are diverticula at the gastric fundus. No filling defects within the pulmonary arteries to suggest pulmonary embolus. No suspicious lytic are blastic osseous lesions. The central airways are patent. No pneumothorax. Patchy densities at the lung bases favor mild dependent changes. Otherwise, no focal lung consolidations to suggest pneumonia. There are few scattered subcentimeter pulmonary cysts, unchanged. IMPRESSION: 1. No evidence for pulmonary embolus. 2. No focal lung consolidations to suggest pneumonia. ACT 112: Negative or not required by law. Electronically signed by: Get Foreman M.D. 03/30/2019 10:00 AM ECG Data Attestation: I personally reviewed and interpreted this ECG as follows: Indication: + chest pain Rate (beats per minute): 67 Rhythm: + normal sinus ECG ST segments: + T-wave inversions (in aVL); no ST depression and no ST elevation Comparison ECG Date: from (02/21/19) Change: the following changes noted (TWI in aVL is new) Additional Comments: 2nd EKG: Normal Sinus Rhythm. 60 BPM. No ischemic change. T wave inversion in lateral lead appears less inverted than from EKG 1. Blood Pressure Blood Pressure Findings: Elevated blood pressure Blood Pressure Disposition: further management by hospitalist [facility] Narrative This patient comes in as described above. He has a recent cardiac history and had a cath a little bit over a month ago that showed multivessel disease requiring multiple stents. He was well until last night and he woke up with chest pain he took nitroglycerin back to bed and took a total of 3. He also received a full-strength aspirin in the ambulance. he is feeling much better at present has minimal pain he says is some presidents in one small area and does hurt when he breathes bruits. No history of PE or lower extremity edema. No fall or trauma. His initial EKG does not show any acute ST segment elevations or anything that require emergent cath he does however have some subtle lateral T wave inversions in aVL. His initial troponin is negative. Chest x-ray is unremarkable. He has no acute electrolyte or metabolic abnormalities. Given the pleuritic nature of his pain, I did order a CTA of his chest to rule out PE. I also ordered a second EKG. his chest CT was unremarkable. No PE. His second EKG does not show any progression compared to the first and if anything the T waves look better. I do think he needs to be admitted/observe for further cardiac work-up and evaluation Impression & Plan Chest pain, EKG abnormality, History of coronary artery disease, Mantle cell lymphoma Discharge Plan Visit Data Chief Complaint: Chest Pain ED Provider: Domenic Archibald Discharge Problem: Chest pain, EKG abnormality, History of coronary artery disease, Mantle cell lymphoma Patient Disposition: Being Evaluated by Hospitalist Forms Stand Alone Forms: My [facility] Prescriptions Prescriptions: No Action clotrimazole 1 % cream 1 appln TOP BID Qty: 45 RF: 1 amlodipine 5 mg tablet 5 mg PO QAM RF: 0 finasteride 5 mg tablet 5 mg PO QAM RF: 0 nitroglycerin 0.4 mg Tablet, Sublingual 0.4 mg sublingual USEASDIRECTD PRN (Reason: Chest Pain) RF: 0 tamsulosin 0.4 mg Capsule 0.4 mg PO DAILY PRN (Reason: Urinary Retention) RF: 0 clopidogrel 75 mg Tablet 75 mg PO QAM Qty: 30 RF: 4 aspirin [Ecotrin Low Strength] 81 mg Tablet,Delayed Release (Dr/Ec) 81 mg PO QAM Qty: 30 RF: 0 metoprolol succinate 25 mg Tablet Extended Release 24 Hr 25 mg PO HS Qty: 30 RF: 4 Referrals Referrals: Wilfrido Loya MD [Primary Care Provider] - Discharge Problem: Chest pain Qualifiers: Chest pain type: unspecified Qualified Code(s): R07.9 - Chest pain, unspecified Mantle cell lymphoma Qualifiers: Lymphoma site: unspecified region Qualified Code(s): C83.10 - Mantle cell lymphoma, unspecified site The scribe's documentation has been prepared under my direction and personally reviewed by me in its entirety. I confirm that the note above accurately reflects all work, treatment, procedures, and medical decision making performed by me.
[2019-03-30] MEDS ORDERED: IOVERSOL 100ml IV PRN (09:42)
--- NOTE | 2019-03-30 10:01 | CT Scan Report ---
CHEST CTA for PULMONARY ARTERIES CT DOSE: 393.23 mGy.cm HISTORY: Sclerosis of breath. TECHNIQUE: Multiaxial CT images of the chest were performed following the intravenous administration of contrast to evaluate the pulmonary arteries. Maximal intensity projection images were also obtaine d. A dose lowering technique was utilized adhering to the principles of ALARA. COMPARISON STUDY: Chest CT 12/19/2018. FINDINGS: Stable left thyroid nodules measure up to 1.3 cm. Normal caliber thoracic aorta with no ruben dence for dissection. The heart is normal in size. No pleural or pericardial effusions. No mediastina l or hilar lymphadenopathy. The visualized liver and spleen are unremarkable. There are diverticula a t the gastric fundus. No filling defects within the pulmonary arteries to suggest pulmonary embolus. No suspicious lytic are blastic osseous lesions. The central airways are patent. No pneumothorax. Pat emanuel densities at the lung bases favor mild dependent changes. Otherwise, no focal lung consolidations to suggest pneumonia. There are few scattered subcentimeter pulmonary cysts, unchanged. IMPRESSION: 1. No evidence for pulmonary embolus. 2. No focal lung consolidations to suggest pneumonia. ACT 112: Negative or not required by law. Electronically signed by: Get Foreman M.D. 03/30/2019 10:00 AM
--- NOTE | 2019-03-30 10:56 | History & Physical Report ---
Date of Service March 30, 2019 Assessment & Plan (1) Chest pain: CTA of chest negative Patient with recent PCI with placement of drug-eluting stents with Dr. Sahni 02/21/2019 Currently on dual antiplatelet therapy with aspirin and clopidogrel Troponin negative Some very minimal T wave depression in aVL which improved on repeat EKG 80 minutes later We will bring patient in for observation overnight and follow serial EKGs and cardiac enzymes Pain currently 2 out of 10 Continue home medications -patient states he took all of his regular medications this morning prior to arrival in the emergency department Cardiology consulted -Dr. Pennington covering for Dr. Brenner Admit to telemetry bed for observation (2) History of coronary artery disease: Drug-eluting stents placed 02/21/[address] Sahni 60 to 70% proximal to mid LAD at bifurcation with large first diagonal, first diagonal with 90% ostial stenosis, 50% mid stenosis, small ramus with 90% ostial/proximal disease and distal RCA with 50 to 60% stenosisnonobstructive by FFR 0.92. Successful PCI of ostial to mid LAD, first diagonal with 3 drug eluding stents (LAD2.5 x 8, 2.75 x 22, diagonal2.5 x 26bifurcation postdilated with kissing balloons). Cardiology consulted (3) Mantle cell lymphoma: Follows with Dr. Eliazar Burger Last chemotherapy or intervention was in 2013 Currently follows outpatient once per year (4) DVT prophylaxis: Continue dual antiplatelet therapy with aspirin and clopidogrel Will order heparin subcutaneously No asymmetrical edema or edema of lower extremities Please refer to Dr. Don's addendum and corrections for further recommendations History of Present Illness Primary Care Provider: Wilfrido Loya MD Attending: Dr. Uriel Don This is a 88-year-old male that underwent cardiac catheterization with drug-eluting stenting on 02/21/[address] Sahni. Cardiac catheterization demonstrated multivessel coronary artery disease with 60 to 70% proximal to mid LAD at bifurcation with large first diagonal, first diagonal with 90% ostial stenosis, 50% mid stenosis, small ramus with 90% ostial/proximal disease and distal RCA with 50 to 60% stenosisnonobstructive by FFR 0.92. Mr. Umaña had successful PCI of ostial to mid LAD, first diagonal with 3 drug eluding stents (LAD2.5 x 8, 2.75 x 22, diagonal2.5 x 26bifurcation postdilated with kissing balloons). The patient awoke early this morning and had chest pain in the left over the chest which was more of a dull aching. He took nitroglycerin and a baby aspirin and pain abated. Patient then awoke to similar pain and noticed he had numbness in his right hand. He took another nitroglycerin and baby aspirin which again had good response. Patient then had a third episode of similar symptoms. He took another nitroglycerin and baby aspirin and came to the emergency depart ment. EKG was performed and showed a very minimal depression in the T waves of aVL. A second EKG was done about 80 minutes later and showed improvement in the T wave depression. Patient denies any nausea or vomiting. He had no fever. He had no pain radiating into the jaw shoulder or arm. Troponin was negative. Potassium was 4.0. Creatinine is 0.91. Patient currently rates his pain as 2 out of 10. On physical examination there was no reproducible pain with palpation of the chest. There was also no increase in pain to muscular exertion of the upper extremity. Patient has an approximately [id number] history of smoking cigarettes. He quit 40 years ago. The patient drinks 1 glass of wine or beer daily. No history of ethanol or substance abuse history. The patient walks 1/2 mile twice daily to walk the dog. He has no recent falls or ambulatory dysfunction. The patient lives alone in the [facility]. His daughter from [place] is currently with him in the emergency department and is visiting the area. The patient states that he is a full resuscitation in the event of cardiac arrest and would elect to have repeat cardiology intervention as needed. The patient has a history of mantle cell lymphoma. This most recently was treated in 2013. He follows with Dr. Darnell as an outpatient. Most recently imaging was performed by the patient's PCP Dr. Wilfrido Loya and is reportedly negative. The patient has not received any chemotherapy or other treatment since 2013. The patient has no shortness of breath. No fever. No sweats or rigors. He has no nausea or vomiting. He has no back pain. He does report bilateral gastrocnemius pain when walking. He has no asymmetrical edema of the lower extremities. He denies any edema of the feet or ankles on an ongoing. He has no other acute issues. Allergies Allergy/AdvReac Type Severity Reaction Status Date / Time No Known Allergies Allergy NONE Verified 03/30/19 09:03 Home Medications Home Medications Medication Instructions Recorded Confirmed Type nitroglycerin 0.4 mg SUBLINGUAL USEASDIRECTD PRN 02/20/19 03/30/19 History tamsulosin 0.4 mg PO DAILY PRN 02/20/19 03/30/19 History aspirin [Ecotrin Low Strength] 81 mg PO QAM #30 tab 02/22/19 03/30/19 Rx clopidogrel 75 mg PO QAM #30 tab 02/22/19 03/30/19 Rx metoprolol succinate 25 mg PO HS #30 tab 02/22/19 03/30/19 Rx amlodipine 5 mg tablet 5 mg PO QAM 03/26/19 03/30/19 History clotrimazole 1 % topical cream 1 appln TOP BID #45 gm 03/26/19 03/30/19 Rx finasteride 5 mg PO QAM 03/30/19 03/30/19 History Past Med/Surg History Medical History (Updated 03/30/19 @ 11:15 by Natanael Nash PA-C) Heart attack Prostate cancer screening Tinea cruris Surgical History History of intravascular stent placement Family History Other Family history non-contributory Social History Preferred Language: Panamanian Communication Ability: Effective Manager Target Required: No Beliefs That Will Affect Care: None Current Living Situation: Spouse Other Information That Helps Us Care for You: No Feels Safe at Home: Yes Safety Concerns: Feels Safe At This Time Smoking Status: Former smoker Hx Alcohol Use: Yes Alcohol type: beer and wine Hx Substance Use: No Review of Systems Review of Systems: All systems reviewed & are unremarkable except as noted in HPI & below Physical Exam Physical Exam: GENERAL : No acute distress. Talkative without shortness of breath EYES: No icterus, gaze conjugate. Pupils equal round and reactive to light NOSE: No evidence of epistaxis. MOUTH: No lesions or candidiasis. Mucosa moist NECK: Supple. No appreciation of carotid bruits LUNGS: Some fine rales in the bilateral bases. No rhonchi. No bronchospasm. Good inspirational effort with no induced cough HEART: Regular, rate controlled. No appreciation of of murmurs ABDOMEN: Soft, NT, ND, BS Present. EXTREMITIES: No LE edema, pedal pulses intact and equal bilaterally. No pain with palpation to bilateral gastrocnemius muscles. NEURO: A&OX3. No pronator drift. Cerebellar function intact with byvngz-ut-[id number] and rapid alternating movements. No asterixis. Strength is equal and appropriate bilaterally to upper and lower extremities. Tongue is midline. No facial droop. No slurred speech. No difficulty with history or word finding. No appreciation of any focal deficits. Results & Data Vital Signs (Past 12 Hours) Vital Signs Temp Pulse Pulse Resp BP BP Pulse Ox 03/30/19 09:30 62 16 128/59 L 96 03/30/19 08:46 76 17 94 03/30/19 08:32 36.6 C 70 17 135/77 94 Laboratory Results 03/30/19 08:34 03/30/19 08:34 Laboratory Tests 03/30/19 08:34 Troponin I < 0.015 Diagnostic Findings CHEST CTA for PULMONARY ARTERIES CT DOSE: 393.23 mGy.cm HISTORY: Sclerosis of breath. TECHNIQUE: Multiaxial CT images of the chest were performed following the intravenous administration of contrast to evaluate the pulmonary arteries. Maximal intensity projection images were also obtained. A dose lowering technique was utilized adhering to the principles of ALARA. COMPARISON STUDY: Chest CT 12/19/2018. FINDINGS: Stable left thyroid nodules measure up to 1.3 cm. Normal caliber thoracic aorta with no evidence for dissection. The heart is normal in size. No pleural or pericardial effusions. No mediastinal or hilar lymphadenopathy. The visualized liver and spleen are unremarkable. There are diverticula at the gastric fundus. No filling defects within the pulmonary arteries to suggest pulmonary embolus. No suspicious lytic are blastic osseous lesions. The central airways are patent. No pneumothorax. Patchy densities at the lung bases favor mild dependent changes. Otherwise, no focal lung consolidations to suggest pneumonia. There are few scattered subcentimeter pulmonary cysts, unchanged. IMPRESSION: 1. No evidence for pulmonary embolus. 2. No focal lung consolidations to suggest pneumonia. ACT 112: Negative or not required by law. Electronically signed by: Get Foreman M.D. 03/30/2019 10:00 AM XR chest 1V portable HISTORY: Atypical Chest Pain COMPARISON: Chest 01/17/2016. FINDINGS: The lungs are clear. Cardiac silhouette is normal in size. No pleural effusions. No pneumothorax. IMPRESSION: No acute process. ACT 112: Negative or not required by law. Electronically signed by: Get Foreman M.D. 03/30/2019 9:23 AM Code Status & VTE Plan Code Status Patient wishes to be full resuscitation VTE Prophylaxis Plan VTE Prophylaxis will be ordered: Yes Supervising Physician Co-Signing Physician Notes Patient seen and examined after his arrival to PCU. Agree with HALIE note above. This is an 88-year-old male with past medical history of CAD, status post PANCHITO placement on 02/21/2019. Patient was discharged soon after on double antiplatelet therapy without any issues. He tells us that he woke up in the middle night with vague chest pressure under the left lower chest. There was a pleuritic component to this. Patient took an aspirin along with a nitro which relieved the pain. However reoccurred in the morning, patient took another aspirin presented to the emergency room. At time of evaluation, patient was eating lunch with out any difficulties. He s pecifically denied any shortness of breath, palpitations, diaphoresis, or essentially any other symptoms. He does note the pain is only present when he takes a deep breath. Exam reveals neck without JVD or carotid bruit. Heart is regular rate with no murmurs. Patient has no significant chest wall tenderness the left lower rib border. Lungs are clear to auscultation in all cooley. Abdomen soft, nontender, nondistended. The remainder exam is as noted above. EKGs from this admission as well as an 02/2019 were reviewed. Patient seems to have some T wave flattening, mostly seen in T1 and T2 which is not present previously. He does have some J-point elevation which appears to be stable. CT angiogram was performed which showed no acute lung pathology. Was negative for pulmonary embolism. Plan will be to place patient in mild observation. Trend cardiac enzymes. Repeat EKG in the morning. Continue medications as ordered including aspirin, Plavix, metoprolol. Would also consider adding a statin which is not on his outpatient medication list. Patient's bus repair supervisor was consulted for further recommendations as well. PG Care Time/CCT Total # of Minutes Spent Total Time Spent with Patient: Total time spent is greater than 50% in coordination of care (as documented) at patient's floor/unit and/or counseling patient: 40 minutes including discussion with attending (1) Mantle cell lymphoma Lymphoma site: unspecified region Qualified Code(s): C83.10 - Mantle cell lymphoma, unspecified site (2) Chest pain Chest pain type: unspecified Qualified Code(s): R07.9 - Chest pain, unspecified
[2019-03-30] MEDS ORDERED: ACETAMINOPHEN 325 MG TAB PO PRN (12:19)
[2019-03-30] MEDS ORDERED: TAMSULOSIN HCL 0.4 MG CAP PO PRN (12:19)
[2019-03-30] MEDS ORDERED: NITROGLYCERIN SL 0.4 MG/TAB TAB SL PRN ×2 (12:19)
[2019-03-30] MEDS ORDERED: ONDANSETRON INJ 2 MG/ML 2 ML VIAL IV PRN (12:19)
[2019-03-30] MEDS: HEPARIN SOD 5,000 UNIT/0.5 ML VIAL SQ SCH ×2 (14:42→21:06)
[2019-03-30] MEDS: SODIUM CHLORIDE 0.9% 1000ML 1,000 ML IV SCH (14:43)
[2019-03-30 15:02] LABS: Creatine Kinase 55 U/L (39-308); Creatine Kinase MB 1.3 ng/ml (0.5-3.6); Troponin I < 0.015 ng/ml (0-0.045)
--- NOTE | 2019-03-30 16:34 | Cardiology Consultation ---
Date of Consultation March 30, 2019 Assessment & Plan (1) CAD (coronary artery disease): (2) S/P coronary artery stent placement: (3) Hypertension: (4) Chest pain: ASSESSMENT/PLAN: 1. Chest pain: Atypical, occurring at rest lasting for 60-90 minutes with negative troponins x2 thus far. Trend troponins for a total of 3. Mild abnormality on ECG compared to priorsInvolving lateral T-waves. Had residual ramus disease on catheterization which was small vessel. Will increase amlodi pine to 10 mg daily which should hopefully help with his hypertension is well. Limited echo tomorrow to evaluate wall motion and LV systolic function. Currently chest pain-free. 2. CAD status post PCI of LAD and diagonal: No definite angina. Presenting symptoms different than prior angina per his report. Continue aspirin 81 mg daily indefinitely. Continue Plavix for at least 1 year. Consider high- intensity statin therapy. Continue beta-duncan. Could consider increase in beta-duncan for repeat angina given ramus disease however his heart rate has been near 60 and therefore will increase calcium channel duncan for antianginal benefit to see if it improves his atypical pain and blood pressure. 3. Hypertension: Blood pressure elevated. Titrating calcium channel duncan as above. 4. Disposition: Plan of care communicated with admitting service, Saad. If no further chest pain and negative troponins, can be discharged tomorrow and have close follow-up with his primary riveting machine operator automatic, Dr. Brenner. Would advocate that he walk in the hallways prior to discharge to ensure no further chest discomfort. 45 minutes spent, with greater than 50% of that time spent counseling patient and coordinating care. Sometime also spent reviewing chart and multiple studies. History of Present Illness Reason for Consultation: Chest pain and recent PCI Requesting Physician: Natanael Nash Attending Physician: Uriel Don DO History of Present Illness Mr. Umaña is a pleasant 88-year-old gentleman with a history significant for CAD status post PCI (LAD and D1), recurring non-Hodgkin's lymphoma (status post chemotherapy), dyslipidemia, and hypertension. His primary riveting machine operator automatic is Dr. Brenner [place] [facility] [place] He has had the following studies/procedures: 1. Echo 01/28/2019 [facility]: Normal LV size, wall motion, systolic function. EF 55%. Type 2 diastolic dysfunction. Aortic root 4.1 cm. No significant valvular abnormalities. Normal PA SP. 2. Cardiac catheterization 02/21/2019: Ostial LAD 40-50%. Proximal to mid LAD 50-60% extending across bifurcation of septal. Large D1 ostial 90% and mid 50%. Ostial circumflex 30%. Small caliber ramus ostial/proximal 80%. Dominant RCA. Distal RCA 50-60% with FFR of 0.92. Underwent PCI of LAD with 2.5 x 8 mm kaley of ostial LAD overlapping with proximal aspect of proximal to mid LAD stent with 2.75 x 22 mm kaley. D1 underwent PCI with 2.5 x 26 mm kaley. He states that over the past 6 months he has had dyspnea with exertion during his usual exercise which consist of walking. He feels it is a little bit better following PCI but still occurring. He has not been having any exertional chest discomfort however which reportedly was occurring prior to PCI. Very early this morning however he woke up and had a chest heaviness described as an ache on the left side of his chest. It did not radiate. There is no associated shortness of breath or diaphoresis but he felt as though he was breathing shallow. He took nitroglycerin and aspirin. He estimates that the episode lasted 60-90 minutes. He fell back asleep only to wake up on 2 more occasions with the same symptoms for which he once again took aspirin and nitroglycerin. He admits that his right hand has been numb when waking up as well and if he shook is hand, it would improve the numbness. He got out of bed to go get nitroglycerin on the first occasion and did not notice any worsening of his symptoms with exertion. He states that this discomfort is different than his angina that he felt prior to his PCI. He came to the emergency department and was placed on observation with serial troponin. He states that his angina in February of 2019 consisted of a left-sided sharp pain. He walks 0.5 miles twice per day in the last 8 of a mile he feels dyspneic, but no chest discomfort. He has had intermittent visual abnormalities and has also had intermittent difficulty in speech finding, but this is not new for this hospitalization. Yesterday he went to cardiac rehab for orientation. He denies syncope, near- syncope, palpitations, edema, or bleeding such as melena, hematochezia, or hematuria. Review of systems: As above. Review of systems otherwise negative/unremarkable. Family history: father with CAD. Social history: He denies smoking. Occasional wine. He lives at home with his . He had 2 daughters, 1 of which in September. The other daughter lives in [place] and is a PhD. 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 He is unaccompanied. Allergies Allergy/AdvReac Type Severity Reaction Status Date / Time No Known Allergies Allergy NONE Verified 03/30/19 09:03 Home Medications Home Medications Medication Instructions Recorded Confirmed Type nitroglycerin 0.4 mg SUBLINGUAL USEASDIRECTD PRN 02/20/19 03/30/19 History tamsulosin 0.4 mg PO DAILY PRN 02/20/19 03/30/19 History aspirin [Ecotrin Low Strength] 81 mg PO QAM #30 tab 02/22/19 03/30/19 Rx clopidogrel 75 mg PO QAM #30 tab 02/22/19 03/30/19 Rx metoprolol succinate 25 mg PO HS #30 tab 02/22/19 03/30/19 Rx amlodipine 5 mg tablet 5 mg PO QAM 03/26/19 03/30/19 History clotrimazole 1 % topical cream 1 appln TOP BID #45 gm 03/26/19 03/30/19 Rx finasteride 5 mg PO QAM 03/30/19 03/30/19 History Patient History Medical History (Updated 03/30/19 @ 16:40 by Marco Pennington MD) CAD (coronary artery disease) Dyslipidemia Heart attack Hypertension Non-Hodgkin lymphoma Prostate cancer screening Tinea cruris Surgical History History of intravascular stent placement Family History Other Family history non-contributory Social History Preferred Language: Polish Communication Ability: Effective Signal Operator Technical Required: No Beliefs That Will Affect Care: None marital status: Current Living Situation: Spouse Other Information That Helps Us Care for You: No Feels Safe at Home: Yes Safety Concerns: Feels Safe At This Time Smoking Status: Former smoker Hx Alcohol Use: Yes Alcohol type: beer and wine Hx Substance Use: No Physical Exam Physical Exam: Gen.: No acute distress. Alert and oriented. HEENT: Anicteric sclera. Neck: No JVD. No bruits. Normal carotid upstrokes bilaterally. Cardiac: PMI was nondisplaced. No ventricular heave. Regular rate and rhythm. Normal S1-S2. 1/6 systolic murmur. No rubs, or gallops. Pulmonary: Clear to auscultation bilaterally without wheezes, rales, or rhonchi. Abdomen: Soft, nontender, nondistended, with normoactive bowel sounds. No bruits noted. Extremities: 2+ radial pulses bilaterally. 2+ posterior tibialis pulses bilaterally. No edema or cyanosis. No palpable cords. Psychiatric: Affect appears appropriate. Chest: Nontender to palpation. Results & Data Vital Signs (Past 12 Hours) Vital Signs Temp Pulse Pulse Pulse Resp BP BP 03/30/19 15:44 36.7 C 65 18 162/76 H 03/30/19 15:37 67 03/30/19 12:43 70 03/30/19 12:20 36.6 C 67 16 173/74 H 03/30/19 12:01 80 18 153/69 H 03/30/19 11:00 61 17 159/63 H 03/30/19 09:30 62 16 128/59 L 03/30/19 08:46 76 17 03/30/19 08:32 36.6 C 70 17 135/77 Pulse Ox 03/30/19 15:44 97 03/30/19 15:37 03/30/19 12:43 03/30/19 12:20 95 03/30/19 12:01 95 03/30/19 11:00 96 03/30/19 09:30 96 03/30/19 08:46 94 03/30/19 08:32 94 Laboratory Results Laboratory Results - last 24 hr 03/30/19 03/30/19 03/30/19 08:34 08:34 08:34 WBC 9.54 RBC 4.41 L Hgb 13.6 L Hct 39.6 L MCV 89.8 MCH 30.8 MCHC 34.3 RDW Std Deviation 43.9 RDW Coeff of Mireya 13.4 Plt Count 174 MPV 10.0 Immature Gran % (Auto) 0.3 Neut % (Auto) 82.6 Lymph % (Auto) 9.9 [place] % (Auto) 5.6 Eos % (Auto) 1.4 Baso % (Auto) 0.2 Immature Gran # (Auto) 0.03 H Neut # (Auto) 7.89 H Lymph # (Auto) 0.94 L [place] # (Auto) 0.53 Eos # (Auto) 0.13 Baso # (Auto) 0.02 PT 10.3 INR 1.0 APTT 27.5 PTT Ratio 1.0 Sodium 140 Potassium 4.0 Chloride 108 H Carbon Dioxide 26 Anion Gap 6.0 BUN 19 H Creatinine 0.91 Est Cr Clr Drug Dosing 51.5 Est GFR ( Amer) 86.3 Est GFR (Non-Af Amer) 74.5 BUN/Creatinine Ratio 21.1 H Glucose 109 H Calcium 8.9 Magnesium Total Bilirubin 0.6 AST 21 ALT 21 Alkaline Phosphatase 74 Total Creatine Kinase CK-MB (CK-2) CK/CKMB % Calc Troponin I < 0.015 Total Protein 6.6 Albumin 3.6 Globulin 3.0 Albumin/Globulin Ratio 1.2 Lipase 142 Specimen Hemolysis 03/30/19 03/30/19 08:34 14:25 WBC RBC Hgb Hct MCV MCH MCHC RDW Std Deviation RDW Coeff of Mireya Plt Count MPV Immature Gran % (Auto) Neut % (Auto) Lymph % (Auto) [place] % (Auto) Eos % (Auto) Baso % (Auto) Immature Gran # (Auto) Neut # (Auto) Lymph # (Auto) [place] # (Auto) Eos # (Auto) Baso # (Auto) PT INR APTT PTT Ratio Sodium Potassium Chloride Carbon Dioxide Anion Gap BUN Creatinine Est Cr Clr Drug Dosing Est GFR ( Amer) Est GFR (Non-Af Amer) BUN/Creatinine Ratio Glucose Calcium Magnesium 2.1 Total Bilirubin AST ALT Alkaline Phosphatase Total Creatine Kinase 55 CK-MB (CK-2) 1.3 CK/CKMB % Calc 2.4 Troponin I < 0.015 Total Protein Albumin Globulin Albumin/Globulin Ratio Lipase Specimen Hemolysis Diagnostic Findings Telemetry personally reviewed: Sinus rhythm. No arrhythmia. ECGs personally reviewed: ECG 02/21/2019: Sinus rhythm [address] abnormality. ECG 03/30/2019 8:28 a.m.: Sinus rhythm 67 bpm. Nonspecific T-wave abnormality. Possible septal infarct. T-wave abnormality in the lateral leads. ECG 03/30/2019 9:49 a.m.: Sinus bradycardia 59 bpm. Septal infarct. Nonspecific lateral T-wave abnormality. Nonspecific ST abnormality. Cardiac catheterization report reviewed as noted above. Outside echo report reviewed as noted above. CTA chest 03/30/2019: No PE. No consolidation. Per Radiology. Medications Administered Current Inpatient Medications Acetaminophen (Tylenol) 650 mg PO Q4H PRN PRN Reason: Pain or Fever Stop: 04/29/19 12:18 Amlodipine Besylate (Norvasc) 5 mg PO QAM [facility] Stop: 04/30/19 08:59 Aspirin (Ecotrin Ectab) 81 mg PO QAM [facility] Stop: 04/30/19 08:59 Clopidogrel Bisulfate (Plavix) 75 mg PO QAM [facility] Stop: 04/30/19 08:59 Clotrimazole (Lotrimin 1%) 1 appln TOP BID [facility] Stop: 04/29/19 20:59 [facility]aster[facility]) [facility] Stop: 04/30/19 08:59 Heparin Sodium (Porcine) (Heparin Sodium (Porcine)) 5,000 units SQ Q8 [place] Stop: 04/29/19 13:59 Last Admin: 03/30/19 14:42 Dose: 5,000 units Documented by: Sodium Chloride (Nss 1000ml) 1,000 mls @ 75 mls/hr IV .[id number] NACHO Stop: 04/29/19 12:18 Last Admin: 03/30/19 14:43 Dose: 75 mls/hr Documented by: Ioversol (Optiray 320 100ml) 93 ml IV ONCE PRN PRN Reason: Interaction Checking Stop: 04/03/19 09:41 Last Admin: 03/30/19 09:43 Dose: 93 ml Documented by: Metoprolol Succinate (Toprol Xl) 25 mg PO HS NACHO Stop: 04/29/19 20:59 Nitroglycerin (Nitrostat) 0.4 mg SL UD PRN PRN Reason: Chest Pain Stop: 04/29/19 12:18 Ondansetron HCl (Zofran) 4 mg IV Q6H PRN PRN Reason: Nausea Stop: 04/29/19 12:18 Tamsulosin HCl (Flomax) 0.4 mg PO DAILY PRN PRN Reason: Urinary Retention Stop: 04/29/19 12:18 PG Care Time/CCT Total # of Minutes Spent Total Time Spent with Patient: Total time spent is greater than 50% in coordination of care (as documented) at patient's floor/unit and/or counseling patient: (1) Chest pain Chest pain type: unspecified Qualified Code(s): R07.9 - Chest pain, unspecified
[2019-03-30] MEDS ORDERED: METOPROLOL SUCC 25MG EXT REL TAB PO SCH (21:00)
[2019-03-30] MEDS: CLOTRIMAZOLE 1% CR 15 GM TUBE TOP SCH (21:06)
[2019-03-31] MEDS: SODIUM CHLORIDE 0.9% 1000ML 1,000 ML IV SCH (02:50)
--- NOTE | 2019-03-31 05:53 | Electrocardiogram Report ---
Test Reason : Blood Pressure : / mmHG Vent. Rate : 067 BPM Atrial Rate : 067 BPM P-R Int : 164 ms QRS Dur : 096 ms QT Int : 414 ms P-R-T Axes : 003 -30 088 degrees QTc Int : 437 ms Normal sinus rhythm Left axis deviation Septal infarct , age undetermined Nonspecific ST and T wave abnormality Abnormal ECG When compared with ECG of 21-FEB-2019 15:29, ST now depressed in Anterior leads T wave inversion now evident in Lateral leads Confirmed by Marco Pennington ([id number]) on 03/31/2019 5:52:40 AM Referred By: REFERRED SELF Confirmed By:Marco Pennington
--- NOTE | 2019-03-31 05:55 | Electrocardiogram Report ---
Test Reason : Blood Pressure : / mmHG Vent. Rate : 059 BPM Atrial Rate : 059 BPM P-R Int : 172 ms QRS Dur : 096 ms QT Int : 410 ms P-R-T Axes : 000 -28 072 degrees QTc Int : 405 ms Sinus bradycardia Septal infarct (cited on or before 30-MAR-2019) Nonspecific ST and T wave abnormality Abnormal ECG When compared with ECG of 30-MAR-2019 08:28, No significant change was found Confirmed by Marco Pennington ([id number]) on 03/31/2019 5:54:45 AM Referred By: REFERRED SELF Confirmed By:Marco Pennington
[2019-03-31] MEDS: HEPARIN SOD 5,000 UNIT/0.5 ML VIAL SQ SCH (06:04)
[2019-03-31 07:10] LABS: Basophils # (auto) 0.01 K/uL (0-0.2); Basophils % (auto) 0.1 %; Eosinophils # (auto) 0.16 K/uL (0-0.5); Eosinophils % (auto) 2.3 %; Hematocrit (blood only) 41.1 % (42-52); Hemoglobin 13.8 g/dL (14.0-18.0); Lymphocytes % (auto) 21.9 %; Mean Corpuscular Hemoglobin 30.1 pg (25-34); Mean Corpuscular Hgb Conc 33.6 g/dL (32-36); Mean Corpuscular Volume 89.7 fL (80-100); Mean Platelet Volume 10.3 fL (7.4-10.4); Monocytes # (auto) 0.51 K/uL (0.11-0.59); Monocytes % (auto) 7.4 %; Neutrophils # (auto) 4.67 K/uL (1.4-6.5); Neutrophils % (auto) 68.3 %; Platelet Count 164 K/uL (130-400); RDW Coefficient of Variation 13.7 % (11.5-14.5); RDW Standard Deviation 44.9 fL (36.4-46.3); Red Blood Count 4.58 M/uL (4.7-6.1); White Blood Count 6.85 K/uL (4.8-10.8)
[2019-03-31 07:34] LABS: BUN Creatinine Ratio 15.8 (10-20); Calcium 8.9 mg/dl (8.5-10.1); Creatinine Clr Calc Pharmacy 53.8 ml/min; Est GFR (African American) 88.7; Est GFR (Non-African American) 76.5; Potassium 3.6 mmol/L (3.5-5.1)
[2019-03-31] MEDS: CLOTRIMAZOLE 1% CR 15 GM TUBE TOP SCH (08:43)
[2019-03-31] MEDS ORDERED: FINASTERIDE 5 MG TAB PO SCH (09:00)
[2019-03-31] MEDS ORDERED: ASPIRIN 81 MG ECTAB PO SCH (09:00)
[2019-03-31] MEDS ORDERED: CLOPIDOGREL BISULFATE 75 MG TAB PO SCH (09:00)
[2019-03-31] MEDS ORDERED: AMLODIPINE BESYLATE 5 MG TAB PO SCH ×2 (09:00)
--- NOTE | 2019-03-31 10:50 | Cardiology Progress Note ---
Date of Service March 31, 2019 Assessment & Plan (1) CAD (coronary artery disease): (2) S/P coronary artery stent placement: (3) Hypertension: (4) Chest pain: ASSESSMENT/PLAN: 1. Chest pain: Atypical, occurring at rest lasting for 60-90 minutes with negative serial troponins. Had another episode early last night, once again lasting 1 hour with negative troponin this morning. Symptoms may not be cardiac related. But he does have residual ramus disease and the ramus is a small vessel. Medical therapy recommended as per interventional Cardiology. 2. CAD status post PCI of LAD and diagonal: No definite angina. Presenting symptoms different than prior angina per his report. Continue aspirin 81 mg daily indefinitely. Continue Plavix for at least 1 year. Consider high- intensity statin therapy. Continue beta-duncan. Amlodipine 10 mg, increased from 5 mg. Hopefully this improves his blood pressure and symptoms overall. Could also consider nitrate therapy such as Imdur or. Beta-duncan not titrated due to heart rates in the lower 60s at times, but could consider increasing if necessary. No indication for urgent cardiac catheterization. 3. Hypertension: Blood pressure has remained elevated, which could be contributing to his presentation. Amlodipine titrated as above. 4. Disposition: If his blood pressure improves and he is able to ambulate without chest discomfort, could consider discharge later today with close follow-up with his primary alumni relations officer, Dr. Brenner. Otherwise, would recommend further titration of medications to optimize blood pressure and keep chest pain- free. Subjective He had an episode of chest discomfort overnight and states that the symptoms persisted for 1 hour before notify nursing staff. He then took nitroglycerin at approximately 10:50 p.m. with resolution of discomfort after 5-10 minutes. He has not had any further discomfort. He denies shortness of breath, palpitations, syncope, or bleeding. He is hoping to go home today. He has not yet ambulated in the hallways. His blood pressure has remained elevated. Review of systems: As above. Physical Exam Physical Exam: Gen.: No acute distress. Alert and oriented. HEENT: Anicteric sclera. Neck: No JVD. Cardiac: Regular. Normal S1-S2. 1/6 systolic murmur. No rubs, or gallops. Pulmonary: Clear to auscultation bilaterally without wheezes, rales, or rhonchi. Abdomen: Soft, nontender, nondistended, with normoactive bowel sounds. No bruits noted. Extremities: No edema or cyanosis. Psychiatric: Affect appears appropriate. Results & Data Vital Signs (Past 12 Hours) Vital Signs Temp Pulse Pulse Pulse Resp BP Pulse Ox 03/31/19 07:39 63 03/31/19 07:38 36.6 C 62 12 165/67 H 96 03/31/19 04:00 36.6 C 81 81 22 175/81 H 98 03/31/19 00:00 36.9 C 61 61 61 20 170/80 H 96 Laboratory Results Laboratory Results - last 24 hr 03/30/19 03/30/19 03/31/19 08:34 14:25 06:29 WBC 6.85 RBC 4.58 L Hgb 13.8 L Hct 41.1 L MCV 89.7 MCH 30.1 MCHC 33.6 RDW Std Deviation 44.9 RDW Coeff of Mireya 13.7 Plt Count 164 MPV 10.3 Immature Gran % (Auto) 0.0 Neut % (Auto) 68.3 Lymph % (Auto) 21.9 [place] % (Auto) 7.4 Eos % (Auto) 2.3 Baso % (Auto) 0.1 Immature Gran # (Auto) 0.00 Neut # (Auto) 4.67 Lymph # (Auto) 1.50 [place] # (Auto) 0.51 Eos # (Auto) 0.16 Baso # (Auto) 0.01 Sodium Potassium Chloride Carbon Dioxide Anion Gap BUN Creatinine Est Cr Clr Drug Dosing Est GFR ( Amer) Est GFR (Non-Af Amer) BUN/Creatinine Ratio Glucose Calcium Magnesium 2.1 Total Creatine Kinase 55 CK-MB (CK-2) 1.3 CK/CKMB % Calc 2.4 Troponin I < 0.015 Triglycerides Cholesterol LDL Cholesterol, Calc VLDL Cholesterol, Calc HDL Cholesterol Cholesterol/HDL Ratio 03/31/19 03/31/19 06:29 06:29 WBC RBC Hgb Hct MCV MCH MCHC RDW Std Deviation RDW Coeff of Mireya Plt Count MPV Immature Gran % (Auto) Neut % (Auto) Lymph % (Auto) [place] % (Auto) Eos % (Auto) Baso % (Auto) Immature Gran # (Auto) Neut # (Auto) Lymph # (Auto) [place] # (Auto) Eos # (Auto) Baso # (Auto) Sodium 143 Potassium 3.6 Chloride 111 H Carbon Dioxide 28 Anion Gap 4.0 BUN 14 Creatinine 0.87 Est Cr Clr Drug Dosing 53.8 Est GFR ( Amer) 88.7 Est GFR (Non-Af Amer) 76.5 BUN/Creatinine Ratio 15.8 Glucose 100 H Calcium 8.9 Magnesium Total Creatine Kinase CK-MB (CK-2) CK/CKMB % Calc Troponin I < 0.015 Triglycerides 152 H Cholesterol 167 LDL Cholesterol, Calc 97 VLDL Cholesterol, Calc 30 HDL Cholesterol 40 Cholesterol/HDL Ratio 4 Diagnostic Findings Telemetry personally reviewed: Sinus rhythm with a brief nonsustained episode of paroxysmal atrial tachycardia. ECG personally reviewed: ECG 03/31/2019 6:43 a.m.: Sinus rhythm 68 bpm. Possible septal infarct. Nonspecific ST/T-wave abnormality. Echo 03/31/19: Normal left ventricular size and systolic function. EF 55-60%. No regional wall motion abnormalities. Mild left ventricular hypertrophy. Medications Administered Current Inpatient Medications Acetaminophen (Tylenol) 650 mg PO Q4H PRN PRN Reason: Pain or Fever Stop: 04/29/19 12:18 Amlodipine Besylate (Norvasc) 10 mg PO [facility] Stop: 04/30/19 08:59 Last Admin: 03/31/19 08:40 Dose: 10 mg Documented by: Aspirin (Ecotrin Ectab) 81 mg PO QAM [facility] Stop: 04/30/19 08:59 Last Admin: 03/31/19 08:39 Dose: 81 mg Documented by: [facility]id[facility] ([facility]avix) [address] [place] Stop: 04/30/19 08:59 Last Admin: 03/31/19 08:42 Dose: 75 mg Documented by: Clotrimazole (Lotrimin 1%) 1 appln TOP BID [facility] Stop: 04/29/19 20:59 Last Admin: 03/31/19 08:43 Dose: 1 appln Documented by: Finasteride (Proscar) 5 mg PO QAM [facility] Stop: 04/30/19 08:59 Last Admin: 03/31/19 08:42 Dose: 5 mg Documented by: Heparin Sodium (Porcine) (Heparin Sodium (Porcine)) 5,000 units SQ Q8 [facility] Stop: 04/29/19 13:59 Last Admin: 03/31/19 06:04 Dose: 5,000 units Documented by: Ioversol (Optiray 320 100ml) 93 ml IV ONCE PRN PRN Reason: Interaction Checking Stop: 04/03/19 09:41 Last Admin: 03/30/19 09:43 Dose: 93 ml Documented by: Metoprolol Succinate (Toprol Xl) 25 mg PO HS [facility] Stop: 04/29/19 20:59 Last Admin: 03/30/19 21:06 Dose: 25 mg Documented by: Nitroglycerin (Nitrostat) 0.4 mg SL UD PRN PRN Reason: Chest Pain Stop: 04/29/19 12:18 Ondansetron HCl (Zofran) 4 mg IV Q6H PRN PRN Reason: Nausea Stop: 04/29/19 12:18 Tamsulosin HCl (Flomax) 0.4 mg PO DAILY PRN PRN Reason: Urinary Retention Stop: 04/29/19 12:18 PG Care Time/CCT Total # of Minutes Spent Total Time Spent with Patient: Total time spent is greater than 50% in coordination of care (as documented) at patient's floor/unit and/or counseling patient: (1) Chest pain Chest pain type: unspecified Qualified Code(s): R07.9 - Chest pain, unspecified
--- NOTE | 2019-03-31 11:59 | Discharge Summary ---
Date of Service March 31, 2019 Admission HPI Per Admitting Provider Attending: Dr. Uriel Don This is a 88-year-old male that underwent cardiac catheterization with drug-eluting stenting on 02/21/[address] Sahni. Cardiac catheterization demonstrated multivessel coronary artery disease with 60 to 70% proximal to mid LAD at bifurcation with large first diagonal, first diagonal with 90% ostial stenosis, 50% mid stenosis, small ramus with 90% ostial/proximal disease and distal RCA with 50 to 60% stenosisnonobstructive by FFR 0.92. Mr. Umaña had successful PCI of ostial to mid LAD, first diagonal with 3 drug eluding stents (LAD2.5 x 8, 2.75 x 22, diagonal2.5 x 26bifurcation postdilated with kissing balloons). The patient awoke early this morning and had chest pain in the left over the chest which was more of a dull aching. He took nitroglycerin and a baby aspirin and pain abated. Patient then awoke to similar pain and noticed he had numbness in his right hand. He took another nitroglycerin and baby aspirin which again had good response. Patient then had a third episode of similar symptoms. He took another nitroglycerin and baby aspirin and came to the emergency department. EKG was performed and showed a very minimal depression in the T wav es of aVL. A second EKG was done about 80 minutes later and showed improvement in the T wave depression. Patient denies any nausea or vomiting. He had no fever. He had no pain radiating into the jaw shoulder or arm. Troponin was negative. Potassium was 4.0. Creatinine is 0.91. Patient currently rates his pain as 2 out of 10. On physical examination there was no reproducible pain with palpation of the chest. There was also no increase in pain to muscular exertion of the upper extremity. Patient has an approximately [id number] history of smoking cigarettes. He quit 40 years ago. The patient drinks 1 glass of wine or beer daily. No history of ethanol or substance abuse history. The patient walks 1/2 mile twice daily to walk the dog. He has no recent falls or ambulatory dysfunction. The patient lives alone in the [facility]. His daughter from [place] is currently with him in the emergency department and is visiting the area. The patient states that he is a full resuscitation in the event of cardiac arrest and would elect to have repeat cardiology intervention as needed. The patient has a history of mantle cell lymphoma. This most recently was treated in 2013. He follows with Dr. Darnell as an outpatient. Most recently imaging was performed by the patient's PCP Dr. Wilfrido Loya and is reportedly negative. The patient has not received any chemotherapy or other treatment since 2013. The patient has no shortness of breath. No fever. No sweats or rigors. He has no nausea or vomiting. He has no back pain. He does report bilateral gastrocnemius pain when walking. He has no asymmetrical edema of the lower extremities. He denies any edema of the feet or ankles on an ongoing. He has no other acute issues. Admission Exam Per Admitting Provider GENERAL : No acute distress. Talkative without shortness of breath EYES: No icterus, gaze conjugate. Pupils equal round and reactive to light NOSE: No evidence of epistaxis. MOUTH: No lesions or candidiasis. Mucosa moist NECK: Supple. No appreciation of carotid bruits LUNGS: Some fine rales in the bilateral bases. No rhonchi. No bronchospasm. Good inspirational effort with no induced cough HEART: Regular, rate controlled. No appreciation of of murmurs ABDOMEN: Soft, NT, ND, BS Present. EXTREMITIES: No LE edema, pedal pulses intact and equal bilaterally. No pain with palpation to bilateral gastrocnemius muscles. NEURO: A&OX3. No pronator drift. Cerebellar function intact with [id number] and rapid alternating movements. No asterixis. Strength is equal and appropriate bilaterally to upper and lower extremities. Tongue is midline. No facial droop. No slurred speech. No difficulty with history or word finding. No appreciation of any focal deficits. Principal Diagnosis 1. Atypical chest pain 2. Coronary disease status post PANCHITO x3 in 03/07 3. Hypertension 4. Mantle cell lymphoma by history Discharge Exam Constitutional cooperative; no acute distress Neck trachea midline, no thyromegaly Respiratory normal respiratory effort Auscultation: lungs clear to auscultation bilaterally; no crackles, no rales, no rhonchi and no wheezes Cardiovascular Rate/Rhythm: regular rate and regular rhythm Heart Sounds: normal S1 and normal S2 Gastrointestinal (Abdomen) Inspection/Auscultation: abdomen normal to inspection Percussion/Palpation: abdomen soft; abdomen nontender, no guarding, abdomen not rigid and no hepatosplenomegaly Skin no rashes, warm and dry Discharge Data Allergies Allergy/AdvReac Type Severity Reaction Status Date / Time No Known Allergies Allergy NONE Verified 03/30/19 09:03 Consultations 03/30/19 10:11 ED Decision to Admit Stat 03/30/19 12:19 Consult Cardiology Routine Consult Case Management - Discharge Planning Routine Ordered Studies 03/30/19 09:18 CT angio chest PE protocol Stat Hospital Course (1) Chest pain: Patient with very atypical chest pain. He had 3 sets of troponins, all of which were nondetectable. He also is 2D echo that was unremarkable. Next Patient was seen by cardiology who felt that he can be discharged if work-up was normal. He was told to follow-up with his primary care provider. We did note that the patient was not on a statin and Lipitor 40 mg daily was added to his medication list. He was mildly hypertensive with a blood pressure at a high of 175/81. Cardiology increase his Norvasc from 5 mg to 10 mg daily. This is reflected in his discharge as well. Patient was told that he should follow-up with his primary care provider or pharmaceutical salesperson within the next 1-2 weeks to have his blood pressure rechecked. He should continue double antiplatelet therapy as well as with Lipitor as ordered above. Patient is also on metoprolol which should be continued as well. (2) History of coronary artery disease: (3) Mantle cell lymphoma: (4) DVT prophylaxis: Total Time Total Time Spent Total Time Spent (In Minutes): Discharge time in excess of 30 minutes Discharge Plan Discharge Items Patient Disposition: Home - Self-Care Reason For Visit: CHEST PAIN Discharge Diagnosis: 1. Atypical chest pain 2. Coronary disease status post PANCHITO x3 in 03/07 3. Hypertension 4. Mantle cell lymphoma by history Activity: Resume your previous activity Lifting: Gradually increase as tolerated Sexual Activity: When tolerated Driving/Machine Use: No limitations Non-emergency contact: Primary Care Provider and Stop Attacher Call non-emergency contact if: you have any medication questions, your symptoms worsen and your pain is not controlled Follow-up/Referrals: Wilfrido Loya MD [Primary Care Provider] - Jai Brenner DO [Physician] - Diet: Low Fat Addtl Attending Provider Instructions: If pain recurs, call your pharmaceutical salesperson or primary care provider return to the emergency room for further evaluation Pending Studies at Discharge: No Stand-Alone Forms: [facility], Smoking Cessation Medications and DC Order Prescriptions: New atorvastatin [Lipitor] 40 mg tablet 40 mg PO HS Qty: 30 RF: 0 amlodipine [Norvasc] 10 mg tablet 10 mg PO DAILY Qty: 30 RF: 0 Continued clotrimazole 1 % cream 1 appln TOP BID Qty: 45 RF: 1 finasteride 5 mg tablet 5 mg PO QAM RF: 0 nitroglycerin 0.4 mg Tablet, Sublingual 0.4 mg sublingual USEASDIRECTD PRN (Reason: Chest Pain) RF: 0 tamsulosin 0.4 mg Capsule 0.4 mg PO DAILY PRN (Reason: Urinary Retention) RF: 0 clopidogrel 75 mg Tablet 75 mg PO QAM Qty: 30 RF: 4 aspirin [Ecotrin Low Strength] 81 mg Tablet,Delayed Release (Dr/Ec) 81 mg PO QAM Qty: 30 RF: 0 metoprolol succinate 25 mg Tablet Extended Release 24 Hr 25 mg PO HS Qty: 30 RF: 4 Discontinued amlodipine 5 mg tablet 5 mg PO QAM RF: 0 Discharge Orders: Discharge Order (Routine); Ordered 03/31/19 Ordered By: Uriel Don Admission Data Admit Date/Time: 03/30/19 11:12 Attending Provider: Uriel Don Admit Provider: Uriel Don Primary Care Provider: Wilfrido Loya Other Providers: Uriel Don ; Marco Pennington
--- NOTE | 2019-03-31 21:48 | Electrocardiogram Report ---
Test Reason : Blood Pressure : / mmHG Vent. Rate : 068 BPM Atrial Rate : 068 BPM P-R Int : 186 ms QRS Dur : 094 ms QT Int : 432 ms P-R-T Axes : 000 -07 102 degrees QTc Int : 459 ms Normal sinus rhythm Septal infarct (cited on or before 30-MAR-2019) Nonspecific ST and T wave abnormality Abnormal ECG When compared with ECG of 30-MAR-2019 09:49, No significant change was found Confirmed by Marco Pennington ([id number]) on 03/31/2019 9:48:25 PM Referred By: REFERRED SELF Confirmed By:Marco Pennington
== END 2019-03-31 14:21 | disposition home or self-care (01) ==
LOC: ED 08:23 → 2S 08:23